=== PATIENT | female | born 1975 | race Hispanic/Latino ===

== ENCOUNTER 2023-06-22 10:16 | Emergency (ER) | payer SELFPAY ==
[2023-06-22] MEDS ORDERED: Ondansetron PF 4 MG/2 ML Vial ONE (10:53)
[2023-06-22] MEDS ORDERED: Morphine 4 MG/ML VIAL ONE (10:53)
[2023-06-22 11:06] LABS: #Eosinphils 0.1 thou/uL (0.0-0.7); #Monocytes 0.4 thou/uL (0.11-0.59); #Neutrophils 3.2 thou/uL (1.40-6.50); %Basophils 0.7 % (0.0-1.0); %Eosinophils 1.7 % (0.0-10.0); %Lymphocytes 34.1 % (21.0-51.0); %Monocytes 6.8 % (0.0-10.0); %Neutrophils 56.5 % (42.0-75.0); Hematocrit 43.3 % (36.0-47.0); Hemoglobin 14.6 g/dL (12.0-16.0); Mean Corpuscular HGB CONC 33.7 g/dL (32.0-36.0); Mean Corpuscular Hemoglobin 28.7 pg (27.0-31.0); Mean Corpuscular Volume 85.2 fl (78.0-98.0); Mean Platelet Volume 9.5 fL (7.4-10.4); Platelet Count 324 10x3/uL (130-400); RBC Distribution Width 13.4 % (11.5-14.5); Red Blood Cell (RBC) Count 5.08 mill/uL (4.20-5.40); White Blood Cell (WBC) Count 5.7 10x3/uL (4.8-10.8)
[2023-06-22] MEDS ORDERED: Iopamidol-370 76% 500 ML MDV (1 ML CHARGE) ONE (11:15)
[2023-06-22 11:19] LABS: BHCG - Serum Negative (NEGATIVE); Pregs Control Background? CLEAR/WHITE (CLR/WHITE); Pregs Control Bar Appear? YES (CONTROL BAR)
[2023-06-22 11:32] LABS: ALT (SGPT) 14 U/L (8-55); AST (SGOT) 15 U/L (5-34); Albumin 4.6 g/dL (3.5-5.0); Alkaline Phosphatase 56 U/L (40-110); Anion Gap 13 mmol/L (10-20); BUN (Urea Nitrogen) 14 mg/dL (7.0-18.7); Bilirubin, Total 0.5 mg/dL (0.2-1.2); Calc. Creatinine Clearance 0 mL/min (70-130); Calcium 9.3 mg/dL (7.8-10.44); Carbon Dioxide 25 mmol/L (22-29); Chloride 106 mmol/L (98-107); Estimated GFR 108; Globulin 3.1 g/dL (2.4-3.5); Glucose 92 mg/dL (70-105); Lipase 27 U/L (8-78); Potassium 4.4 mmol/L (3.5-5.1); Protein, Total 7.7 g/dL (6.0-8.3); Sodium 140 mmol/L (136-145)
[2023-06-22 12:25] LABS: Bilirubin Negative (Negative); Blood, Urine Trace (Negative); Glucose, Urine (Dipstick) Negative (Negative); Ketone, Urine Negative (Negative); Leukocyte Negative (Negative); Nitrite Negative (Negative); Protein, Urine (Dipstick) Negative (Neg-Trace); Urobilinogen 0.2 mg/dL (Less than 2)
[2023-06-22 12:27] LABS: Clarity Clear (Clear); Specific Gravity, Urine 1.008 (1.002-1.036)
[2023-06-22 12:42] LABS: CAUTI Indications for Culture Pelvic or flank pain; RBC/HPF 0-3 HPF (0-3); WBC/HPF None Seen HPF (0-3)
[2023-06-22 12:43] LABS: Bacteria/HPF None Seen HPF (None Seen); Urine Culture Reflex No No
== END 2023-06-22 13:09 | disposition home or self-care (01) ==
LOC: ERS 10:16 → EDBD 10:16 → ERS 13:09
DX: R10.9 Unspecified abdominal pain (principal); E11.9 Type 2 diabetes mellitus without complications; I10 Essential (primary) hypertension; Z79.84 Long term (current) use of oral hypoglycemic drugs; Z79.899 Other long term (current) drug therapy
CPT/HCPCS: 74177; 80053; 81001; 83690; 84703; 85025; 96374; 96375; J2270; J2405; Q9967